=== PATIENT | female | born 1990 | race Caucasian/White ===

== ENCOUNTER → 2017-05-15 | Outpatient (REF) | payer MEDICAID | LOC: M LAB REF 09:26 | PROVIDERS: ATTEND Physician Assistant | DX: N39.0 Urinary tract infection, site not specified (principal) ==

== ENCOUNTER → 2017-05-18 | Outpatient (CLI) | payer MEDICAID ==
[2017-05-18 11:34] LABS: MEAN CORPUSCULAR HEMOGLOBIN 30.9 pg (27.0-33.0); MEAN CORPUSCULAR VOLUME 90.8 fl (80.0-96.0); RED CELL DISTRIBUTION WIDTH 11.7 % (11.5-14.5); WHITE BLOOD COUNT 5.7 K/mm3 (4.0-10.0)
--- NOTE | 2017-05-18 12:11 | ECGEPIP ---
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
[2017-05-18 12:23] LABS: ALBUMIN 3.8 GM/DL (3.2-5.2); ALBUMIN/GLOBULIN RATIO 1.06 (1.00-1.93); ALKALINE PHOSPHATASE 84 U/L (45-117); ALT/SGPT 16 U/L (12-78); ANION GAP 8 MEQ/L (8-16); AST/SGOT 13 U/L (15-37); BILIRUBIN,TOTAL 0.5 MG/DL (0.2-1.0); BLOOD UREA NITROGEN 10 MG/DL (7-18); CALCIUM LEVEL 9.5 MG/DL (8.5-10.1); CARBON DIOXIDE LEVEL 26 MEQ/L (21-32); CHLORIDE LEVEL 107 MEQ/L (98-107); CREATININE FOR GFR 0.71 MG/DL (0.55-1.02); GLOMERULAR FILTRATION RATE > 60.0 (>60); GLUCOSE, FASTING 85 MG/DL (70-105); POTASSIUM SERUM 4.4 MEQ/L (3.5-5.1); SODIUM LEVEL 141 MEQ/L (136-145); TOTAL PROTEIN 7.4 GM/DL (6.4-8.2)
== END ==
LOC: M LAB 11:00
PROVIDERS: ATTEND Family Medicine
DX: Z13.9 Encounter for screening, unspecified (principal); F11.20 Opioid dependence, uncomplicated

== ENCOUNTER 2017-10-19 22:44 | Emergency (ER) | payer MEDICAID ==
[~2017-10-19] VITALS: Ht 165.1 cm; Wt 78.9 kg
[2017-10-19 22:44] VITALS: BP 141/93
[2017-10-19] MEDS ORDERED: SUBO2MIS (23:02)
[2017-10-19] MEDS ORDERED: WELLTAB38 PO (23:02)
[2017-10-19] MEDS ORDERED: [UNRECOGNIZED DRUG - OTHER] (23:03)
[2017-10-20] MEDS ORDERED: CLEO300C2 PO (00:47)
[2017-10-20] MEDS ORDERED: CLINDAMYCIN 150 MG CAP PO ONE (01:00)
[2017-10-20] MEDS ORDERED: IBUPROFEN 800 MG TAB PO ONE (01:00)
--- NOTE | 2017-10-20 01:30 | ED PDOC ---
Post-Departure Follow-Up discussed diagnosis and treatment with patient, pt became verbally abusive swearing stating that the provider did not do his job and she needed and xray, she was asked if she fell and she said "no, it was a needle stick" it was the relayed that a needle probably didn't break the bone and it is most likely cellulitis. the patient was encouraged to return in 2-3 days if the symptoms were not getting better and to return right away if the markedly increase. Pt continued to swear at provider. At this point charge nurse Ann Marie took over the discharge process Adelina Saenz Oct 20, 2017 01:30
[2017-10-20] MEDS ORDERED: IBUPROFEN 600 MG TAB PO ONE (01:45)
== END 2017-10-20 01:48 | disposition home or self-care (01) ==
LOC: EDBD 22:44 → M ED 22:44
DX: L03.113 Cellulitis of right upper limb (principal); F41.9 Anxiety disorder, unspecified; F33.9 Major depressive disorder, recurrent, unspecified; M06.9 Rheumatoid arthritis, unspecified; Z79.891 Long term (current) use of opiate analgesic; Z88.2 Allergy status to sulfonamides; F17.210 Nicotine dependence, cigarettes, uncomplicated

== ENCOUNTER 2018-04-25 13:50 | Emergency (ER) | payer MEDICAID ==
[2018-04-25] MEDS: CLINDAMYCIN 150 MG CAP PO (15:25)
== END 2018-04-25 15:58 | disposition home or self-care (01) ==
LOC: M ED 13:50
DX: H00.015 Hordeolum externum left lower eyelid (principal); F17.200 Nicotine dependence, unspecified, uncomplicated; Z88.2 Allergy status to sulfonamides; Z79.899 Other long term (current) drug therapy
CPT/HCPCS: 99283

== ENCOUNTER 2018-06-23 16:45 | Emergency (ER) | payer MEDICAID, OTHER ==
[2018-06-23] MEDS: [UNRECOGNIZED DRUG - OTHER] IM (18:00)
[2018-06-23] MEDS: metroNIDAZOLE (FLAGYL) 500 MG TAB PO (18:00)
[2018-06-23] MEDS: AZITHROMYCIN 250 MG TAB PO (18:00)
[2018-06-23] MEDS: cefTRIAXone SOD 250 MG VIAL (J0696) IM (18:00)
[2018-06-23] MEDS: EXPOSURE KIT-ADULT 7 DAY SUPPLY PO (18:00)
[2018-06-23] MEDS: ULIPRISTAL ACETATE 30 MG TAB (ELLA) PO (18:15)
[2018-06-23 20:01] LABS: CONTROL LINE INT CTR LINE PRESENT; HIV SCRN NEGATIVE (NEGATIVE); HIV SCRN1 NEGATIVE (NEGATIVE)
[2018-06-23 20:04] LABS: ALBUMIN 4.1 GM/DL (3.2-5.2); ALBUMIN/GLOBULIN RATIO 1.21 (1.00-1.93); ALKALINE PHOSPHATASE 95 U/L (45-117); ALT/SGPT 26 U/L (12-78); ANION GAP 9 MEQ/L (8-16); AST/SGOT 30 U/L (7-37); BILIRUBIN,TOTAL 1.8 MG/DL (0.2-1.0); BLOOD UREA NITROGEN 15 MG/DL (7-18); CALCIUM LEVEL 8.8 MG/DL (8.5-10.1); CARBON DIOXIDE LEVEL 23 MEQ/L (21-32); CHLORIDE LEVEL 108 MEQ/L (98-107); CREATININE FOR GFR 0.65 MG/DL (0.55-1.30); GLOMERULAR FILTRATION RATE > 60.0 (>60); GLUCOSE, FASTING 67 MG/DL (70-100); SODIUM LEVEL 140 MEQ/L (136-145); TOTAL PROTEIN 7.5 GM/DL (6.4-8.2)
[2018-06-23 20:05] LABS: BASO % 0.5 % (0.0-1.0); EOS # 0.2 10^3/uL (0.0-0.50); EOS % 1.9 % (0.0-3.0); HEMATOCRIT 38.8 % (36.0-47.0); HEMOGLOBIN 13.6 g/dl (12.0-15.5); IMMATURE GRANULOCYTE % 0.3 % (0-3.0); LYMPH % 24.9 % (24.0-44.0); MEAN CORPUSCULAR HGB CONC 35.1 g/dl (32.0-36.5); MEAN CORPUSCULAR VOLUME 88.4 fl (80.0-96.0); MONO # 0.9 10^3/uL (0.0-0.8); MONO % 11.4 % (0.0-5.0); NEUTROPHILS # 4.8 10^3/uL (1.8-7.7); PLATELET COUNT, AUTOMATED 187 10^3/uL (150-450); RED BLOOD COUNT 4.39 10^6/uL (4.00-5.40); RED CELL DISTRIBUTION WIDTH 12.2 % (11.5-14.5); WHITE BLOOD COUNT 7.9 10^3/uL (4.0-10.0)
[2018-06-23 20:06] LABS: CONTROL LINE HCG INT CTR LINE PRESENT; HCG, SERUM QUALITATIVE NEGATIVE (NEGATIVE)
[2018-06-25 11:10] LABS: HEPATITIS B SURFACE ANTIBODY NEGATIVE (POSITIVE)
[2018-06-25 11:23] LABS: HEPATITIS B SURFACE ANTIGEN NEGATIVE (NEGATIVE)
[2018-06-25 12:15] LABS: HEPATITIS C VIRUS ABY INDEX 8.5 INDEX (<0.8)
[2018-06-29 00:07] LABS: HCV RNA NAA QUALITATIVE Positive (Negative)
== END 2018-06-23 19:35 | disposition home or self-care (01) ==
LOC: M ED 16:45
DX: T76.21XA Adult sexual abuse, suspected, initial encounter (principal); Z20.5 Contact with and (suspected) exposure to viral hepatitis; Z88.2 Allergy status to sulfonamides
CPT/HCPCS: 90471

== ENCOUNTER 2019-04-18 06:29 | Emergency (ER) | payer MEDICAID, OTHER ==
[~2019-04-18] VITALS: Ht 165.1 cm; Wt 66.8 kg
[~2019-04-18 06:29] MED LIST: CLEO300C2 PO; DIFL150T PO; RALT40TA PO; SUBO2MIS; TRUVTAB PO; WELLTAB38 PO; [UNRECOGNIZED DRUG - OTHER]; suboxone PO
[2019-04-18 06:41] VITALS: BP 117/90
[2019-04-18 07:56] LABS: BASO # 0.1 10^3/uL (0.0-0.2); BASO % 0.6 % (0.0-1.0); EOS # 0.2 10^3/uL (0.0-0.50); EOS % 2.3 % (0.0-3.0); LYMPH # 3.3 10^3/uL (1.5-6.5); LYMPH % 33.2 % (24.0-44.0); MEAN CORPUSCULAR HEMOGLOBIN 31.3 pg (27.0-33.0); MEAN CORPUSCULAR HGB CONC 34.9 g/dl (32.0-36.5); MEAN CORPUSCULAR VOLUME 89.6 fl (80.0-96.0); MONO # 0.9 10^3/uL (0.0-0.8); MONO % 8.9 % (0.0-5.0); NEUTROPHILS # 5.4 10^3/uL (1.8-7.7); NEUTROPHILS % 54.7 % (36.0-66.0); PLATELET COUNT, AUTOMATED 208 10^3/uL (150-450); WHITE BLOOD COUNT 9.9 10^3/uL (4.0-10.0)
[2019-04-18 08:13] LABS: AMPHETAMINES LEVEL URINE POSITIVE (NEGATIVE); BARBITURATES URINE NEGATIVE (NEGATIVE); BENZODIAZEPINES URINE NEGATIVE (NEGATIVE); CANNABINOIDS URINE POSITIVE (NEGATIVE); COCAINE METABOLITE URINE NEGATIVE (NEGATIVE); METHADONE URINE NEGATIVE (NEGATIVE); OPIATES URINE NEGATIVE (NEGATIVE); PHENCYCLIDINE URINE NEGATIVE (NEGATIVE)
--- NOTE | 2019-04-18 08:21 | REP ---
CHEST: Two views. There is no evidence of acute infiltrate. No pleural effusion is seen. The heart is normal in size. The mediastinal silhouette is unremarkable. The visualized osseous structures are intact. IMPRESSION: No acute pulmonary disease. Electronically Signed by Yunior Osei MD 04/22/2019 01:39 P
[2019-04-18 08:31] LABS: BLOOD UREA NITROGEN 14 MG/DL (7-18); CALCIUM LEVEL 9.4 MG/DL (8.5-10.1); CARBON DIOXIDE LEVEL 25 MEQ/L (21-32); CHLORIDE LEVEL 104 MEQ/L (98-107); CPK CREATINE PHOSPHOKINASE 108 U/L (26-192); CREATININE FOR GFR 0.69 MG/DL (0.55-1.30); GLOMERULAR FILTRATION RATE > 60.0 (>60); GLUCOSE, FASTING 91 MG/DL (70-100); MB/CK RELATIVE INDEX 1.39 (< OR =4); POTASSIUM SERUM 3.5 MEQ/L (3.5-5.1); SODIUM LEVEL 137 MEQ/L (136-145); TROPONIN I < 0.02 NG/ML (< 0.10)
--- NOTE | 2019-04-20 07:55 | ECGEPIP ---
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
== END 2019-04-18 09:09 | disposition home or self-care (01) ==
LOC: EDBD 06:29 → M ED 06:29
DX: R07.89 Other chest pain (principal); R00.0 Tachycardia, unspecified; F15.10 Other stimulant abuse, uncomplicated; Z72.0 Tobacco use; Z79.899 Other long term (current) drug therapy; Z88.2 Allergy status to sulfonamides

== ENCOUNTER → 2019-09-19 | Outpatient (REF) | payer OTHER, MEDICAID ==
[2019-09-19 17:10] LABS: APPEARANCE, URINE HAZY (CLEAR); BACTERIA, URINE AUTO NEGATIVE (NEGATIVE); BILIRUBIN, URINE AUTO NEGATIVE (NEGATIVE); BLOOD, URINE BLOOD NEGATIVE (NEGATIVE); COLOR, URINE AMBER (YELLOW); GLUCOSE, URINE (UA) AUTO NEGATIVE (NEGATIVE); KETONE, URINE AUTO TRACE mg/dL (NEGATIVE); LEUKOCYTE ESTERASE, URINE AUTO 2+ (NEGATIVE); MUCUS, URINE SMALL (NEGATIVE); NITRITE, URINE AUTO NEGATIVE (NEGATIVE); PROTEIN, URINE AUTO 1+ mg/dL (NEGATIVE); RBC, URINE AUTO 3 /HPF (0-3); SPECIFIC GRAVITY URINE AUTO 1.021 (1.002-1.035); SQUAMOUS EPITHELIAL CELL UR AU 2 /HPF (0-6); WBC, URINE AUTO 1 /HPF (0-3)
[2019-09-19 20:11] LABS: CHLAMYDIA DNA AMPLIFICATION NEGATIVE (NEGATIVE); GC DNA AMPLIFICATION NEGATIVE (NEGATIVE)
== END ==
LOC: M LAB REF 16:06
PROVIDERS: ATTEND Nurse Practitioner Adult Health
DX: R30.0 Dysuria (principal)

== ENCOUNTER 2020-05-21 17:23 | Emergency (ER) | payer MEDICAID, OTHER ==
[~2020-05-21] VITALS: Ht 165.1 cm; Wt 61.4 kg
[2020-05-21 17:30] VITALS: BP 135/78
[2020-05-21] MEDS ORDERED: NS 1,000 ML IV ONE (17:45)
[2020-05-21] MEDS: COMBIVENT RESPIMAT 100-20MCG INHALER 4GM INH SCH ×2 (17:45→17:52)
== END 2020-05-21 17:56 | disposition left against medical advice (07) ==
LOC: M ED 17:23 → EDBD 17:23 → M ED 17:56
DX: R07.9 Chest pain, unspecified (principal); Z53.21 Procedure and treatment not carried out due to patient leaving prior to being seen by health care provider; F19.10 Other psychoactive substance abuse, uncomplicated; Z72.0 Tobacco use; Z79.899 Other long term (current) drug therapy; Z88.2 Allergy status to sulfonamides

== ENCOUNTER 2020-05-26 01:22 | Emergency (ER) | payer OTHER ==
[~2020-05-26] VITALS: Ht 165.1 cm; Wt 61.4 kg
[2020-05-26] MEDS ORDERED: diphenhydrAMINE 50MG/ML VIAL (J1200) IM ONE (01:30)
[2020-05-26] MEDS ORDERED: LORazepam 2 MG/ML VIAL IM ONE (01:30)
[2020-05-26] MEDS ORDERED: HALOPERIDOL 5MG/ML VIAL (J1630 PER 1) IM ONE (01:30)
[2020-05-26 02:43] LABS: HEMATOCRIT 46.3 % (36.0-47.0); HEMOGLOBIN 16.1 g/dl (12.0-15.5); MEAN CORPUSCULAR HEMOGLOBIN 31.8 pg (27.0-33.0); MEAN CORPUSCULAR VOLUME 91.3 fl (80.0-96.0); PLATELET COUNT, AUTOMATED 247 10^3/uL (150-450); RED BLOOD COUNT 5.07 10^6/uL (4.00-5.40); WHITE BLOOD COUNT 10.1 10^3/uL (4.0-10.0)
[2020-05-26 02:44] LABS: MEAN CORPUSCULAR HGB CONC 34.8 g/dl (32.0-36.5)
[2020-05-26 03:07] LABS: HCG, SERUM QUALITATIVE NEGATIVE (NEGATIVE)
[2020-05-26 03:36] LABS: ACETAMINOPHEN LEVEL < 2.0 UG/ML (10.0-30.0); ALBUMIN 4.5 GM/DL (3.2-5.2); ALT/SGPT 111 U/L (12-78); BILIRUBIN,DIRECT 0.3 MG/DL (0.0-0.2); BILIRUBIN,TOTAL 0.7 MG/DL (0.2-1.0); BLOOD UREA NITROGEN 11 MG/DL (7-18); CALCIUM LEVEL 9.9 MG/DL (8.5-10.1); CARBON DIOXIDE LEVEL 20 MEQ/L (21-32); CHLORIDE LEVEL 106 MEQ/L (98-107); CREATININE FOR GFR 1.29 MG/DL (0.55-1.30); ETHYL ALCOHOL (ETHANOL) < 0.003 % (0.000-0.010); GLOMERULAR FILTRATION RATE 51.7 (>60); GLUCOSE, FASTING 103 MG/DL (70-100); POTASSIUM SERUM 3.8 MEQ/L (3.5-5.1); SODIUM LEVEL 142 MEQ/L (136-145); TOTAL PROTEIN 8.7 GM/DL (6.4-8.2)
[2020-05-26 03:52] LABS: AMPHETAMINES LEVEL URINE POSITIVE (NEGATIVE); BARBITURATES URINE NEGATIVE (NEGATIVE); BENZODIAZEPINES URINE NEGATIVE (NEGATIVE); CANNABINOIDS URINE POSITIVE (NEGATIVE); COCAINE METABOLITE URINE NEGATIVE (NEGATIVE); METHADONE URINE NEGATIVE (NEGATIVE); OPIATES URINE NEGATIVE (NEGATIVE); PHENCYCLIDINE URINE NEGATIVE (NEGATIVE)
[2020-05-26 11:45] VITALS: BP 118/74
== END 2020-05-26 11:48 | disposition home or self-care (01) ==
LOC: M ED 01:22
DX: F19.10 Other psychoactive substance abuse, uncomplicated (principal); Z79.899 Other long term (current) drug therapy; Z88.2 Allergy status to sulfonamides
CPT/HCPCS: 80048; 80076; 80307; 84443; 84703; 85027; 96372; 99285; G0480; J1200; J1630; J2060

== ENCOUNTER 2020-09-05 02:50 | Emergency (ER) | payer OTHER ==
[~2020-09-05] VITALS: Ht 165.1 cm; Wt 75.0 kg
[2020-09-05] MEDS ORDERED: diphenhydrAMINE 50MG/ML VIAL (J1200) IM ONE (03:00)
[2020-09-05] MEDS ORDERED: LORazepam 2 MG/ML VIAL IM ONE (03:00)
[2020-09-05] MEDS ORDERED: HALOPERIDOL 5MG/ML VIAL (J1630 PER 1) IM ONE (03:00)
[2020-09-05 03:37] LABS: HEMATOCRIT 45.5 % (36.0-47.0); HEMOGLOBIN 15.5 g/dl (12.0-15.5); MEAN CORPUSCULAR HEMOGLOBIN 32.9 pg (27.0-33.0); MEAN CORPUSCULAR HGB CONC 34.1 g/dl (32.0-36.5); MEAN CORPUSCULAR VOLUME 96.6 fl (80.0-96.0); PLATELET COUNT, AUTOMATED 178 10^3/uL (150-450); RED BLOOD COUNT 4.71 10^6/uL (4.00-5.40); WHITE BLOOD COUNT 5.9 10^3/uL (4.0-10.0)
[2020-09-05 04:04] LABS: AMPHETAMINES LEVEL URINE NEGATIVE (NEGATIVE); BARBITURATES URINE NEGATIVE (NEGATIVE); BENZODIAZEPINES URINE NEGATIVE (NEGATIVE); CANNABINOIDS URINE NEGATIVE (NEGATIVE); COCAINE METABOLITE URINE NEGATIVE (NEGATIVE); METHADONE URINE NEGATIVE (NEGATIVE); OPIATES URINE NEGATIVE (NEGATIVE); PHENCYCLIDINE URINE NEGATIVE (NEGATIVE)
[2020-09-05 04:07] LABS: ACETAMINOPHEN LEVEL < 2.0 UG/ML (10.0-30.0); ALBUMIN 4.1 GM/DL (3.2-5.2); ALT/SGPT 84 U/L (12-78); BILIRUBIN,DIRECT 0.2 MG/DL (0.0-0.2); BILIRUBIN,TOTAL 0.6 MG/DL (0.2-1.0); BLOOD UREA NITROGEN 8 MG/DL (7-18); CALCIUM LEVEL 8.4 MG/DL (8.5-10.1); CARBON DIOXIDE LEVEL 22 MEQ/L (21-32); CHLORIDE LEVEL 112 MEQ/L (98-107); CREATININE FOR GFR 0.66 MG/DL (0.55-1.30); ETHYL ALCOHOL (ETHANOL) 0.304 % (0.000-0.010); GLOMERULAR FILTRATION RATE > 60.0 (>60); GLUCOSE, FASTING 97 MG/DL (70-100); POTASSIUM SERUM 3.7 MEQ/L (3.5-5.1); SALICYLATE LEVEL 6.7 MG/DL (5.0-30.0); SODIUM LEVEL 143 MEQ/L (136-145); TOTAL PROTEIN 7.8 GM/DL (6.4-8.2)
[2020-09-05 04:18] LABS: HCG, SERUM QUALITATIVE NEGATIVE (NEGATIVE)
[2020-09-05] MEDS ORDERED: LORazepam 2 MG TAB PO PRN (04:30)
[2020-09-05] MEDS ORDERED: THIAMINE 100 MG TAB PO SCH (04:30)
[2020-09-05] MEDS ORDERED: FOLIC ACID 1 MG TAB PO SCH (09:00)
[2020-09-05] MEDS ORDERED: MULTIVITAMINS/MINERALS THERAP 1 TAB PO SCH (09:00)
[2020-09-05 12:07] VITALS: BP 138/92
== END 2020-09-05 12:24 | disposition home or self-care (01) ==
LOC: M ED 02:50
DX: F10.120 Alcohol abuse with intoxication, uncomplicated (principal); F43.0 Acute stress reaction; Z88.2 Allergy status to sulfonamides; F17.218 Nicotine dependence, cigarettes, with other nicotine-induced disorders
CPT/HCPCS: 80048; 80076; 80307; 84443; 84703; 85027; 99285; G0480

== ENCOUNTER 2021-01-02 20:26 | Inpatient (IN) | payer MEDICAID, OTHER ==
[~2021-01-02] VITALS: Ht 165.1 cm; Wt 66.5 kg
[2021-01-02] MEDS ORDERED: diphenhydrAMINE 50MG CAP PO ONE (22:45)
[2021-01-02 22:48] LABS: HCG, SERUM QUALITATIVE NEGATIVE (NEGATIVE)
[2021-01-02 23:00] LABS: ACETAMINOPHEN LEVEL < 2.0 UG/ML (10.0-30.0); ALBUMIN 4.5 GM/DL (3.2-5.2); ALT/SGPT 78 U/L (12-78); BILIRUBIN,DIRECT 0.5 MG/DL (0.0-0.2); BILIRUBIN,TOTAL 1.5 MG/DL (0.2-1.0); BLOOD UREA NITROGEN 4 MG/DL (7-18); CALCIUM LEVEL 9.6 MG/DL (8.5-10.1); CARBON DIOXIDE LEVEL 24 MEQ/L (21-32); CHLORIDE LEVEL 101 MEQ/L (98-107); CREATININE FOR GFR 0.66 MG/DL (0.55-1.30); ETHYL ALCOHOL (ETHANOL) < 0.003 % (0.000-0.010); GLOMERULAR FILTRATION RATE > 60.0 (>60); GLUCOSE, FASTING 84 MG/DL (70-100); POTASSIUM SERUM 3.3 MEQ/L (3.5-5.1); SALICYLATE LEVEL 3.6 MG/DL (5.0-30.0); SODIUM LEVEL 136 MEQ/L (136-145); TOTAL PROTEIN 8.1 GM/DL (6.4-8.2)
[2021-01-02 23:22] LABS: AMPHETAMINES LEVEL URINE POSITIVE (NEGATIVE); BARBITURATES URINE NEGATIVE (NEGATIVE); BENZODIAZEPINES URINE NEGATIVE (NEGATIVE); CANNABINOIDS URINE POSITIVE (NEGATIVE); COCAINE METABOLITE URINE POSITIVE (NEGATIVE); METHADONE URINE NEGATIVE (NEGATIVE); OPIATES URINE NEGATIVE (NEGATIVE); PHENCYCLIDINE URINE NEGATIVE (NEGATIVE)
[2021-01-02 23:36] LABS: HEMATOCRIT 42.9 % (36.0-47.0); HEMOGLOBIN 15.1 g/dl (12.0-15.5); MEAN CORPUSCULAR HEMOGLOBIN 33.1 pg (27.0-33.0); MEAN CORPUSCULAR HGB CONC 35.2 g/dl (32.0-36.5); MEAN CORPUSCULAR VOLUME 94.1 fl (80.0-96.0); PLATELET COUNT, AUTOMATED 172 10^3/uL (150-450); RED BLOOD COUNT 4.56 10^6/uL (4.00-5.40); WHITE BLOOD COUNT 8.1 10^3/uL (4.0-10.0)
[2021-01-02] MEDS ORDERED: HALOPERIDOL 5MG/ML VIAL (J1630 PER 1) IM ONE (23:45)
[2021-01-02] MEDS ORDERED: LORazepam 2 MG/ML VIAL IM ONE (23:45)
[2021-01-02] MEDS ORDERED: POTASSIUM CHLORIDE 10 MEQ SR TABLET PO ONE (23:45)
[2021-01-02] MEDS ORDERED: diphenhydrAMINE 50MG/ML VIAL (J1200) IM ONE (23:45)
--- NOTE | 2021-01-03 22:21 | ECGEPIP ---
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
[2021-01-04] MEDS ORDERED: MOM 30ML SUSPENSION UDC PO PRN (18:30)
[2021-01-04] MEDS ORDERED: MAALOX 30 ML SUSP *UDC PO PRN (18:30)
[2021-01-04] MEDS ORDERED: traZODone 50 MG TAB PO PRN (18:30)
[2021-01-04] MEDS ORDERED: haloperidoL 5 MG TAB PO PRN (18:45)
[2021-01-04] MEDS ORDERED: LORazepam 2 MG TAB PO PRN (18:45)
[2021-01-04] MEDS ORDERED: diphenhydrAMINE 50MG CAP PO PRN (18:45)
[2021-01-04 20:45] VITALS: BP 132/94
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
[2021-01-05 15:00] VITALS: BP 123/78
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
[2021-01-05] MEDS ORDERED: POTASSIUM CHLORIDE 10 MEQ SR TABLET PO ONE (15:30)
[2021-01-05] MEDS: ACETAMINOPHEN TAB 650MG DOSE (2X325MG) PO PRN ×2 (15:41→21:49)
[2021-01-05] MEDS ORDERED: THIAMINE 100 MG TAB PO ONE (16:00)
[2021-01-05 18:56] VITALS: BP 123/78
[2021-01-05 22:12] VITALS: BP 121/85
[2021-01-06 04:30] VITALS: BP 134/67
[2021-01-06] MEDS: ACETAMINOPHEN TAB 650MG DOSE (2X325MG) PO PRN (08:12)
[2021-01-06] MEDS ORDERED: MULTIVITAMINS/MINERALS THERAP 1 TAB PO SCH (09:00)
[2021-01-06] MEDS ORDERED: THIAMINE 100 MG TAB PO SCH (09:00)
[2021-01-06] MEDS ORDERED: FOLIC ACID 1 MG TAB PO SCH (09:00)
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
== END 2021-01-06 10:37 | disposition home or self-care (01) | DRG 754 ==
LOC: M ED 20:26 → M ED INP 01-04 18:24 → M PSY 01-04 21:00
PROVIDERS: ADMIT Psychiatry & Neurology Psychiatry; ATTEND Psychiatry & Neurology Psychiatry
DX: F32.9 Major depressive disorder, single episode, unspecified (principal); F10.139 Alcohol abuse with withdrawal, unspecified; F11.90 Opioid use, unspecified, uncomplicated; F41.9 Anxiety disorder, unspecified; Z88.2 Allergy status to sulfonamides; F17.200 Nicotine dependence, unspecified, uncomplicated; F12.90 Cannabis use, unspecified, uncomplicated; R30.0 Dysuria; R51.9 Headache, unspecified

== ENCOUNTER 2021-02-15 11:06 | Inpatient (IN) | payer MEDICAID, OTHER ==
[2021-02-15] MEDS ORDERED: HALOPERIDOL 5MG/ML VIAL (J1630 PER 1) IM ONE (11:15)
[2021-02-15] MEDS ORDERED: diphenhydrAMINE 50MG/ML VIAL (J1200) IM ONE (11:15)
[2021-02-15] MEDS ORDERED: LORazepam 2 MG/ML VIAL IM ONE (11:15)
[2021-02-15] MEDS ORDERED: LORazepam 2 MG/ML VIAL As Ordered ONE (11:23)
[2021-02-15] MEDS ORDERED: LORazepam 2 MG/ML VIAL IV PRN (11:35)
[2021-02-15 11:52] LABS: HEMATOCRIT 45.2 % (36.0-47.0); HEMOGLOBIN 16.2 g/dl (12.0-15.5); MEAN CORPUSCULAR HEMOGLOBIN 34.1 pg (27.0-33.0); MEAN CORPUSCULAR HGB CONC 35.8 g/dl (32.0-36.5); MEAN CORPUSCULAR VOLUME 95.2 fl (80.0-96.0); PLATELET COUNT, AUTOMATED 236 10^3/uL (150-450); RED BLOOD COUNT 4.75 10^6/uL (4.00-5.40); WHITE BLOOD COUNT 8.1 10^3/uL (4.0-10.0)
[2021-02-15] MEDS ORDERED: NS 1,000 ML IV ONE (11:55)
[2021-02-15 12:17] LABS: HCG, SERUM QUALITATIVE NEGATIVE (NEGATIVE)
[2021-02-15 12:31] LABS: ACETAMINOPHEN LEVEL < 2.0 UG/ML (10.0-30.0); ALBUMIN 4.6 GM/DL (3.2-5.2); ALT/SGPT 77 U/L (12-78); BILIRUBIN,DIRECT 0.4 MG/DL (0.0-0.2); BILIRUBIN,TOTAL 1.2 MG/DL (0.2-1.0); BLOOD UREA NITROGEN 12 MG/DL (7-18); CALCIUM LEVEL 10.3 MG/DL (8.5-10.1); CARBON DIOXIDE LEVEL 23 MEQ/L (21-32); CHLORIDE LEVEL 103 MEQ/L (98-107); CREATININE FOR GFR 0.85 MG/DL (0.55-1.30); ETHYL ALCOHOL (ETHANOL) < 0.003 % (0.000-0.010); GLOMERULAR FILTRATION RATE > 60.0 (>60); GLUCOSE, FASTING 105 MG/DL (70-100); POTASSIUM SERUM 3.7 MEQ/L (3.5-5.1); SALICYLATE LEVEL 5.1 MG/DL (5.0-30.0); SODIUM LEVEL 138 MEQ/L (136-145); TOTAL PROTEIN 8.2 GM/DL (6.4-8.2)
[2021-02-15 12:31] LABS: AMPHETAMINES LEVEL URINE POSITIVE (NEGATIVE); BARBITURATES URINE NEGATIVE (NEGATIVE); BENZODIAZEPINES URINE NEGATIVE (NEGATIVE); CANNABINOIDS URINE POSITIVE (NEGATIVE); COCAINE METABOLITE URINE POSITIVE (NEGATIVE); METHADONE URINE NEGATIVE (NEGATIVE); OPIATES URINE NEGATIVE (NEGATIVE); PHENCYCLIDINE URINE NEGATIVE (NEGATIVE)
[2021-02-16 10:50] LABS: RSV AMPLIFICATION NEGATIVE (NEGATIVE)
[2021-02-16] MEDS ORDERED: traZODone 50 MG TAB PO PRN (11:50)
[2021-02-16] MEDS ORDERED: ACETAMINOPHEN TAB 650MG DOSE (2X325MG) PO PRN (11:50)
[2021-02-16] MEDS ORDERED: MOM 30ML SUSPENSION UDC PO PRN (11:50)
[2021-02-16] MEDS ORDERED: MAALOX 30 ML SUSP *UDC PO PRN (11:50)
[2021-02-16 14:23] VITALS: BP 115/71
[2021-02-16] MEDS ORDERED: LORazepam 2 MG TAB PO PRN (17:55)
[2021-02-16 17:56] VITALS: BP 115/71
[2021-02-16] MEDS: THIAMINE 100 MG TAB PO SCH (18:00)
[2021-02-16 20:59] VITALS: BP 122/73
[2021-02-16] MEDS: NICOTINE 21MG/24HR 1 EA TRANSDERMAL TD SCH ×2 (21:03→21:40)
[2021-02-17 05:45] VITALS: BP 105/73
[2021-02-17 06:00] VITALS: BP 105/73
[2021-02-17] MEDS ORDERED: FOLIC ACID 1 MG TAB PO SCH (09:00)
[2021-02-17] MEDS ORDERED: MULTIVITAMINS/MINERALS THERAP 1 TAB PO SCH (09:00)
[2021-02-17] MEDS: NICOTINE 21MG/24HR 1 EA TRANSDERMAL TD SCH (09:27)
[2021-02-17] MEDS: THIAMINE 100 MG TAB PO SCH ×2 (09:27→21:40)
[2021-02-17] MEDS ORDERED: LORazepam 2 MG TAB PO PRN (15:20)
[2021-02-17] MEDS ORDERED: MAALOX 30 ML SUSP *UDC PO PRN (15:20)
[2021-02-17] MEDS ORDERED: MOM 30ML SUSPENSION UDC PO PRN (15:20)
[2021-02-17] MEDS ORDERED: traZODone 50 MG TAB PO PRN (15:20)
[2021-02-17] MEDS ORDERED: THIAMINE 100 MG TAB PO SCH (16:00)
--- NOTE | 2021-02-17 16:01 | MHHPEPDOC ---
General Date Of Admission: Feb 16, 2021 Legal Status: 9.39 Chief Complaint "I believe I was poisoned". History of Present Illness HISTORY OF THE PRESENT ILLNESS: Patient is a 30 -year-old single, disabled/unemployed, domiciled , female, who was brought to the emergency department on a 941 after making statements that she was being poisoned. Patient states that people in her apartment building are putting things in her drink, states a person named Alice and other people are sneaking into her apartment and trying to poison her. When asked why Alice was not arrested. She states that the police are rude and that they didn't believe her thus, she is admitted to psychiatry. Patient states that she has been calling the police on these people who are trying to poison her. States that today her fingertips in her and that she has a rash. She states that she does not didn't need to be admitted to psychiatry because there isn't anything wrong with her other than Alice trying to poison her. She states that Alice admitted this to the police but brought her in instead. Patient has been to this facility, most recently in December of this year with similar complaints, believing that people are after her and someone putting something in her drink. Per ED report, patient was brought to the emergency department on a 941 after making statements that she was being poisoned and expressing homicidal ideation. Patient states that the police brought her to the ED because she thought she was being poisoned. States that she lives at [address] [place] [address]. in another person that lives there, Alice told her that she was being poisoned by some of the other tenants. Patient then states she believes that she is being poisoned, because it has happened 4-5 other times before. She denies suicidality, denies any history of past suicide attempts or self-harm. Also denies homicidal ideation and states that she'll only need homicidal statements to police because "I was out of it". She denies both auditory and visual hallucinations. She does not appear to be internally preoccupied. She complains of depressed mood, anxiety, poor concentration, decreased energy, poor appetite. She reports a history of bipolar disorder and PTSD with 2 admissions to [facility] inpatient psychiatry. She cannot remember when the admissions were she does not currently have outpatient treatment. She reports daily alcohol use and uses drugs "a couple times a week. Patient's drug screen was positive for cannabis, cocaine and amphetamines. Psychiatric Review of Systems Depression (2 or more weeks): denies Koki (4 or more days of): denies Psychosis: delusions, paranoia PTSD: history of trauma, nightmares and flashbacks, intrusive memories, avoidance of triggers Anxiety: gen/non-specific anxiety, situational anxiety, stressor related anxiety Anxiety/ 6 months or more of: restlessness, keyed up, easily fatigued, difficulty concentrating Past Psychiatric History Previous Psychiatric Diagnosis: Unspecified psychotic disorder, alcohol use d isorder. Methamphetamine use disorder, unspecified anxiety disorder, PTSD, not formally diagnosed. Previous Psychiatric Admissions:. This is patient's third hospitalization , possibly Suicide Attempts: no past gestures or attempts. Psychiatric Follow-up: None currently. Psychiatric medications:. No medications. Rehabilitation treatment: [facility], [facility], detox in [place]. Rehab in [place] for alcohol and cannabis Past Medical History Medical Problems Reports that she needs wisdom tooth extraction Rheumatoid arthritis History of lower back pain History of cough and trouble swallowing Head Injury: Yes ( concussion when she was 15 years old) Seizures: No Hospitalizations: Yes (LEEP procedure and hernia repair when she was a baby) Surgeries: Yes Family Medical/Psychiatric HX Medical Problems Father ()hypertension Paternal grandfather, CVA, cardiac paternal side of the family. She reports lymphoma bone cancer, cervical cancer Paternal side of the family. Aunts - Throat cancer, uncle - lung cancer Psychiatric Disorders: Yes (. Mother was hospitalized in [place]) Addiction: Yes (addiction on both sides of the family) Suicide Attemps/Completions: No Addiction History nicotine (2 packs per day), alcohol (every day if he can get it, 24 ounce or at least a 6 pack), other (. Cannabis, reports history of methamphetamine use, amphetamine, history of opiate abuse and was on Suboxone) Social History Childhood: Patient was born in [place], has 3 brothers and she is the second child. She dropped out of school in the eighth grade. Reports her childhood was chaotic. Stated there was a lot of anger. She did well in school until she was about 11. She has rheumatoid arthritis. The medications made her bloated. She arciniega d weight gain and she was bullied because of it. Abuse/Trauma: Yes. Current Living Situation:, Lives alone, has a room, shares a bathroom, lives at [address] [place] [address]. Education:, Went to the eighth grade. Did not pass. Employment:, Not employed at this time has not worked in 7 years. 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 Social Support: Reports that her grandmother's is her supports, but she has no phone or transportation to see her. Her grandmother lives in [place]. Legal: No current legal issues. Has had charges in the past for assault, has been in [facility] for that as well as she was in [facility] for drug charges. Reports that she has not been in parole since 2018 Marital:. Goal not , 1 child. Child is 11 years old. Stressors: Not being able to see her daughter, doesn't like where she lives Mental Status Examination General Appearance: disheveled, ds/not appear stated age (. She looks older), hospital scubs/clothing Build: thin Demeanor: average Eye Contact: average Activity: average Behavior: cooperative Speech: reg/rate,rhythm,volume Mood: anxious Affect: anxious Thought Process: logical/linear Thought Content (Delusions): paranoia, delusions Thought Content (Other): appears paranoid Thought Content (Aggressive): none reported Perception (Hallucinations): none reported Perception (Other): none reported Cognition (Impairment of): none reported Cognition(Intelligence Est.): average Oriented: Awake, Alert, Oriented times three Insight: fair Judgment: Fair Psychosis: Other (believes that people in her apartment building are poisoning her) Diagnoses Unspecified schizophrenia and other psychotic disorders Alcohol use disorder Methamphetamine use disorder Rule out methamphetamine induced psychotic disorder Cannabis use disorder Nicotine use disorder Unspecified anxiety disorder Reports PTSD not formally diagnosed A-FIB/CHADSVASC A-FIB History Current/History of A-Fib/PAF?: No Current PO Anticoag Therapy: No Assessment Patient is a 30-year-old single, disabled/unemployed, domiciled female who was brought to the emergency department on a 941 after she had called the police reporting that someone was poisoning her drink. Patient has been to this facility for similar complaints. Patient admits to cannabis, alcohol, cannabis use. He denies any use of methamphetamines, but has a history of it. She reports feeling very hot, very thirsty having a burning feeling in her fingers and toes. These complaints are very similar to her last hospitalization in December 2019. She will be started on antipsychotic medications to reduce her paranoia and delusions at the time of the interview. She has minimal psychotic symptoms in while she is still delusional. Her delusions are mild. She denies depression, anxiety, suicidal or homicidal ideation, planning or intent to be observed overnight and will determine her needs for future follow-up. We will discharge when appropriate and when she has a safe discharge. Will reinforce continued substance use treatment Initial Treatment Plan 1. Patient was admitted on a [9.39] status. 2. Complete history was obtained. 3. With patients permission, family will be contacted and database will be expanded. 4. Patients medication regimen will be reviewed and changed accordingly. 5. Patient will be provided with protected environment. 6. Patient will be treated with individual, group, and milieu therapies. 7. Patient will receive supportive psych-education. 8. Discharge planning will commence immediately. 9. Outpatient follow-up treatment will be strongly recommended. 10. The initial treatment plan will focus initially on: * altered thoughts. * substance use. ESTIMATED LENGTH OF STAY: 1-3 DAYS. TIME SPENT COUNSELING AND COORDINATING INITIAL CARE: 60 minutes. Tobacco Cessation Screen Tobacco Cessation Tx Ordered?: Yes Pt Refused Vital Signs Vital Signs Date Time Temp Pulse Resp B/P (MAP) Pulse Ox O2 Delivery O2 Flow Rate FiO2 02/17/21 06:00 97.0 89 14 105/73 (84) 99 02/15/21 23:30 Room Air Medications No Active Prescriptions or Reported Meds Allergies Coded Allergies: Sulfa (Sulfonamide Antibiotics) (Verified Allergy, Mild, RASH, 09/05/20) JENNIFER MANLEY MOLD COOLER Feb 17, 2021 15:32
[2021-02-17] MEDS ORDERED: OLANZapine ORAL DISINTEGRATING TAB 5MG PO PRN (16:10)
[2021-02-17 17:00] VITALS: BP 113/71
[2021-02-17 18:09] VITALS: BP 113/71
[2021-02-17] MEDS ORDERED: OLANZapine 10 MG TAB PO SCH (21:00)
--- NOTE | 2021-02-17 22:57 | HPEPDOC ---
[facility] Medical History & Physical Date of Admission Feb 16, 2021 Date of Service: Feb 17, 2021 History and Physical CHIEF COMPLAINT: Paranoid and Homicidal ideation HISTORY OF PRESENT ILLNESS: Mrs. Duval is a 30 year old female who is in the inpatient mental health unit with homicidal ideation and paranoid. I saw patient later in the afternoon. She is concerned that her neighbor has been poisoning her food, drink, and clothes. She would have itches rashes after a powder like substance touch her. These rashes has since resolved. Since she is worried that her neighbor has been trying to poison her with this powder, she didn't eat or drink anything on the day of admission. Otherwise, when discussing about symptoms, she could not give me a discrete answer. She could not say when symptoms started, but relates symptoms to the white powder. Now that she has been away from this white powder, her abdominal pain, dyspnea, sore throat, and numbness in hands and feet have improved. She does report intermittent chest pain that lasts for a few seconds. She could not describe the quality of the chest pain. It can happen at any time. Otherwise, she does drink alcohol, last alcoholic drink was 2 day prior. She does use recreational drugs, last used before admission. She uses Meth, Randi, and Marijuana. PAST MEDICAL HISTORY: 1. Polysubstance abuse 2. Tobacco use 3. Bipolar disorder 4. Manic depressive disorder 5. Anxiety 6. Juvenile arthritis PAST SURGICAL HISTORY: None SOCIAL HISTORY: Tobacco use: Current smoker ETOH: Drinks 6 beers nightly Illicit drug use: Uses marijuana, Meth, and Randi FAMILY HISTORY: Father: History of DM and HTN Mother: History of unknown mental health issues ALLERGIES: Please see below. REVIEW OF SYSTEMS: CONSTITUTIONAL: Denies any fever or chills. ENT: Reports sore throat that is improving RESPIRATORY: Reports dyspnea and cough which have improved CARDIOVASCULAR: Reports intermittent chest pain that lasts a few seconds. GASTROINTESTINAL: Reports bilateral, sharp abdominal pain that started 1 week ago, but improved GENITOURINARY: Denies dysuria. CUTANEOUS: Denies rashes. MUSCULOSKELETAL: Denies muscle weakness. NEUROLOGICAL: Reports numbness in fingers and toes which have improved PSYCHOLOGICAL: Reports anxiety HOME MEDICATIONS: Please see below. PHYSICAL EXAMINATION: VITAL SIGNS: Temperature 97, pulse 104, respiratory rate 14, blood pressure 113/71, pulse oximetry 99% on room air. GENERAL: Comfortable, in no apparent distress. HEENT: Head normocephalic/atraumatic, EOMI, sclera clear. NECK: Supple, no JVD. RESPIRATORY: Lungs clear to auscultation bilaterally, no rales, wheeze or rhonchi. CARDIOVASCULAR: Regular rate and rhythm. ABDOMEN: Soft, nontender. Normal bowel sounds. MUSCLE SKELETAL: Muscle strength 5/5 in all extremities. NEUROLOGICAL: CN 312 grossly intact, no focal deficits noted. PSYCHOLOGICAL: Anxious LABORATORY DATA: See below. ASSESSMENT and Plan 1. Unspecified schizophrenia and other psychotic disorders -Being managed in the inpatient mental health unit 2. Chest pain -Atypical in nature -Patient is young, unlikely to have CAD, but does have history of cocaine use -Patient may benefit from seeing cardiology outpatient -Will order troponin and EKG as part of screening 3. Multiple non-specific complaints -May be related to psychosis and paranoia that someone is poisoning her -Symptoms improved now that she has avoided the powder which has been poisoning her -Labwork appears benign -Will repeat labs since drawing troponin -Patient should follow up with PCP for monitoring of these multiple non-specific complaints Vital Signs Vital Signs Date Time Temp Pulse Resp B/P (MAP) Pulse Ox O2 Delivery O2 Flow Rate FiO2 02/17/21 18:09 97.4 104 18 113/71 (85) 100 Room Air Home Medications No Active Prescriptions or Reported Meds Allergies Coded Allergies: Sulfa (Sulfonamide Antibiotics) (Verified Allergy, Mild, RASH, 09/05/20) A-FIB/CHADSVASC A-FIB History Current/History of A-Fib/PAF?: No JOSÉ LUIS CHÁVEZ DO Feb 17, 2021 22:57
[2021-02-18 06:35] VITALS: BP 123/68
[2021-02-18] MEDS ORDERED: BENZ0.5T23 PO (07:26)
[2021-02-18] MEDS ORDERED: OLAN10TA2 PO (07:26)
[2021-02-18] MEDS ORDERED: HYDR-3363 PO (07:26)
--- NOTE | 2021-02-18 07:42 | MHDSPDOC ---
[facility] Discharge Summary Discharge Summary DATE OF ADMISSION: Feb 16, 2021 at 11:47 DATE OF DISCHARGE: February 18, 2021 at 0734 DISCHARGE DIAGNOSES: Unspecified schizophrenia and other psychotic disorders Alcohol use disorder Methamphetamine use disorder Rule out methamphetamine induced psychotic disorder Cannabis use disorder Nicotine use disorder Unspecified anxiety disorder Reports PTSD not formally diagnosed REASON FOR ADMISSION: Patient is a 30 -year-old single, disabled/unemployed, domiciled , female, who was brought to the emergency department on a 941 after making statements that she was being poisoned. She was delusional and paranoid. Patient states that people in her apartment building are putting things in her drink, states a person named Alice and other people are sneaking into her apartment and trying to poison her. When asked why Alice was not arrested. She states that the police are rude and that they didn't believe her thus, she is admitted to psychiatry. Patient states that she has been calling the police on these people who are trying to poison her. States that today her fingertips in her and that she has a rash. She states that she does not didn't need to be admitted to psychiatry because there isn't anything wrong with her other than Alice trying to poison her. She states that Alice admitted this to the police but brought her in instead. Patient has been to this facility, most recently in December of this year with similar complaints, believing that people are after her and someone putting something in her drink. Per ED report, patient was brought to the emergency department on a 941 after making statements that she was being poisoned and expressing homicidal ideation. Patient states that the police brought her to the ED because she thought she was being poisoned. States that she lives at [address] [place] [address] in another person that lives there, Alice told her that she was being poisoned by some of the other tenants. Patient then states she believes that she is being poisoned, because it has happened 4-5 other times before. She denies suicidality, denies any history of past suicide attempts or self-harm. Also denies homicidal ideation and states that she'll only need homicidal statements to police because "I was out of it". She denies both auditory and visual hallucinations. She does not appear to be internally preoccupied. She complains of depressed mood, anxiety, poor concentration, decreased energy, poor appetite. She reports a history of bipolar disorder and PTSD with 2 admissions to [facility] inpatient psychiatry. She cannot remember when the admissions were she does not currently have outpatient treatment. She reports daily alcohol use and uses drugs "a couple times a week. Patient's drug screen was positive for cannabis, cocaine and amphetamines. CONSULTANTS INVOLVED: See Medical H + P by Hospitalist TREATMENT AND PROGRESS ON THE UNIT: Patient was admitted to the [facility] on a 9.39 legal status he was afforded the following treatment modalities: 1) Individual Therapy 2) Group Therapy 3) Medication Management 4) Milieu Therapy 5) Safe Environment HOSPITAL COURSE: Patient was admitted to [facility] on a 9.39 legal status. She was started on Olanzapine 10 mg HS for her paranoid, bizarre and delusional thinking. In yesterdays interview which was my initial evaluation with the patient, she had requested to be discharged. She continued to have paranoia about people putting food in her drink but this was minimal. Attempted to speak to patient about her substance use but she denies use. She had a positive drug screen. Patient was admitted in December 2019 and had virtually similar complaints. She was observed to be delusional and paranoia and believing that people were poisoning her then. Patient has a long history of substance abuse treatment in multiple facilities. She was not agreeable to this as a treatment plan and wanted to return home. she reports that today that she has no abnormal psychiatric symptoms. At this time as she no longer is exhibiting paranoid thinking or believing that people are poisoning her she can be discharged to home. She denies any mood/depressive symptoms on initial evaluation. DISCHARGE ASSESSMENT: In today's interview, patient is alert and oriented, pts dress is appropriate. Hygiene and grooming is Fair. Denies depression and anxiety. Denies suicidal and homicidal ideation, planning or intent. Denies and is not observed with josé miguel, psychotic symptoms of delusions, bizarre thinking, obsessions, paranoia, ruminations illogical thoughts, flight of ideas or does only have fair insight and judgement. Patient has normal mentation, declines further hospitalization on a voluntary status and meets criteria for discharge today. Patient encouraged to return to hospital if his symptoms worsen or change and encouraged to call unit if he/she/they needs to speak to provider for questions regarding medications or care. MENTAL STATUS EXAMINATION ON DISCHARGE: Patient is a 30 -year-old single, disabled/unemployed, domiciled , female, who was brought to the emergency department on a 941 after making statements that she was being poisoned. She was delusional and paranoid. Wilfredo selena's drug screen was positive for cannabis, cocaine and amphetamines. Speech: Is conversant, normal rate, tone and volume, minimal responses but patient is at baseline Language skills are intact Thought processes including: linear and goal oriented Thought content: denies depression and anxiety. Denies suicidal/homicidal ideation, planning or intent. Abstract reasoning, and computation: fair Description of associations: denies, none observed Description of abnormal or psychotic thoughts: denies, none observed. Judgment: fair Insight: fair Orientation: alert and oriented to person, place, time and situation Recent and remote memory: fair Attention span and concentration: fair Language: expansive Fund of knowledge: average Mood: Euthymic Mood Affect: flat MEDICATIONS ON DISCHARGE: See Medication Reconciliation PLAN/FOLLOWUP ARRANGEMENTS: [facility] The amount of time spent in the coordination of care for this patient was approximately 24 minutes. ETOH/Disorder Med Rx ETOH/DRUG DISORDER RX: Offrd @ d/c & pt refused Vital Signs/I&Os Vital Signs Date Time Temp Pulse Resp B/P (MAP) Pulse Ox O2 Delivery O2 Flow Rate FiO2 02/18/21 06:35 98.3 93 16 123/68 (86) 100 Room Air Medications Scheduled Olanzapine (Olanzapine) 10 Mg Tablet, 10 MG PO QHS for Antipsychotic, #7 Scheduled PRN Benztropine Mesylate (Benztropine Mesylate) 0.5 Mg Tablet, 0.5 MG PO BID PRN for EPS, #14 Hydroxyzine HCl (Hydroxyzine HCl) 25 Mg Tablet, 25 MG PO BID PRN for ANXIETY, #14 Allergies Coded Allergies: Sulfa (Sulfonamide Antibiotics) (Verified Allergy, Mild, RASH, 09/05/20) JENNIFER MANLEY NP Feb 18, 2021 07:42
[2021-02-18] MEDS: THIAMINE 100 MG TAB PO SCH (09:00)
[2021-02-18] MEDS ORDERED: NICOTINE 21MG/24HR 1 EA TRANSDERMAL TD SCH (09:00)
[2021-02-18] MEDS ORDERED: MULTIVITAMINS/MINERALS THERAP 1 TAB PO SCH (09:00)
[2021-02-18] MEDS ORDERED: FOLIC ACID 1 MG TAB PO SCH (09:00)
== END 2021-02-18 13:00 | disposition home or self-care (01) | DRG 750 ==
LOC: CANPREER → M ED 11:06 → EDBD 11:06 → EDUNIT# 11:06 → UNDOADMIN 02-16 11:47 → EDBD 02-16 11:47 → M ED INP 02-16 11:47 → M PSY 02-16 11:47 → M ED 02-16 14:09 → M ED INP 02-16 14:12 → M PSY 02-16 14:12
PROVIDERS: ADMIT Psychiatry & Neurology Psychiatry; ATTEND Psychiatry & Neurology Psychiatry
DX: F20.9 Schizophrenia, unspecified (principal); R45.850 Homicidal ideations; F10.10 Alcohol abuse, uncomplicated; F12.90 Cannabis use, unspecified, uncomplicated; F17.200 Nicotine dependence, unspecified, uncomplicated; F41.9 Anxiety disorder, unspecified; F11.90 Opioid use, unspecified, uncomplicated; Z88.2 Allergy status to sulfonamides

== ENCOUNTER → 2021-07-02 | Outpatient (REF) | payer MEDICAID ==
[~2021-07-02] MED LIST changes: +BENZ0.5T23 PO; +EMTR1TAB16 PO; +HYDR-3363 PO; +OLAN1TAB20 PO; -TRUVTAB PO
[2021-07-02 17:28] LABS: APPEARANCE, URINE CLEAR (CLEAR); BACTERIA, URINE AUTO NEGATIVE (NEGATIVE); BILIRUBIN, URINE AUTO NEGATIVE (NEGATIVE); BLOOD, URINE BLOOD NEGATIVE (NEGATIVE); COLOR, URINE YELLOW (YELLOW); GLUCOSE, URINE (UA) AUTO NEGATIVE (NEGATIVE); KETONE, URINE AUTO NEGATIVE (NEGATIVE); LEUKOCYTE ESTERASE, URINE AUTO TRACE (NEGATIVE); NITRITE, URINE AUTO NEGATIVE (NEGATIVE); PROTEIN, URINE AUTO NEGATIVE (NEGATIVE); RBC, URINE AUTO 0 /HPF (0-3); SPECIFIC GRAVITY URINE AUTO 1.005 (1.002-1.035); SQUAMOUS EPITHELIAL CELL UR AU 0 /HPF (0-6); UROBILINOGEN, URINE AUTO 0.2 mg/dL (0.0-2.0); WBC, URINE AUTO 1 /HPF (0-3)
== END ==
LOC: M LAB REF 17:05
PROVIDERS: ATTEND Physician Assistant
DX: N39.0 Urinary tract infection, site not specified (principal)

== ENCOUNTER 2021-07-30 23:45 | Emergency (ER) | payer MEDICAID, OTHER ==
[2021-07-31 00:12] VITALS: BP 129/91
== END 2021-07-31 00:36 | disposition home or self-care (01) ==
LOC: M ED 23:45
DX: F43.0 Acute stress reaction (principal); F19.10 Other psychoactive substance abuse, uncomplicated; F17.200 Nicotine dependence, unspecified, uncomplicated; Z79.899 Other long term (current) drug therapy; Z88.2 Allergy status to sulfonamides

== ENCOUNTER 2021-09-24 00:53 | Inpatient (IN) | payer MEDICAID, OTHER ==
[~2021-09-24] VITALS: Ht 167.6 cm; Wt 66.9 kg
[2021-09-24] MEDS ORDERED: LORazepam 1 MG TAB PO STA (02:33)
[2021-09-24 03:08] LABS: AMPHETAMINES LEVEL URINE POSITIVE (NEGATIVE); BARBITURATES URINE NEGATIVE (NEGATIVE); BENZODIAZEPINES URINE NEGATIVE (NEGATIVE); CANNABINOIDS URINE POSITIVE (NEGATIVE); COCAINE METABOLITE URINE NEGATIVE (NEGATIVE); METHADONE URINE NEGATIVE (NEGATIVE); OPIATES URINE NEGATIVE (NEGATIVE); PHENCYCLIDINE URINE NEGATIVE (NEGATIVE)
[2021-09-24 05:47] LABS: HEMOGLOBIN 14.2 g/dl (12.0-15.5); MEAN CORPUSCULAR HEMOGLOBIN 31.6 pg (27.0-33.0); MEAN CORPUSCULAR HGB CONC 35.5 g/dl (32.0-36.5); MEAN CORPUSCULAR VOLUME 88.9 fl (80.0-96.0); PLATELET COUNT, AUTOMATED 247 10^3/uL (150-450)
[2021-09-24 06:33] LABS: ACETAMINOPHEN LEVEL < 2.0 UG/ML (10.0-30.0); ALBUMIN 3.9 GM/DL (3.2-5.2); ALT/SGPT 72 U/L (12-78); BILIRUBIN,DIRECT 0.4 MG/DL (0.0-0.2); BILIRUBIN,TOTAL 1.2 MG/DL (0.2-1.0); BLOOD UREA NITROGEN 15 MG/DL (7-18); CALCIUM LEVEL 9.4 MG/DL (8.5-10.1); CARBON DIOXIDE LEVEL 23 MEQ/L (21-32); CHLORIDE LEVEL 103 MEQ/L (98-107); CREATININE FOR GFR 0.61 MG/DL (0.55-1.30); ETHYL ALCOHOL (ETHANOL) < 0.003 % (0.000-0.010); GLOMERULAR FILTRATION RATE > 60.0 (>60); GLUCOSE, FASTING 80 MG/DL (70-100); POTASSIUM SERUM 3.8 MEQ/L (3.5-5.1); SALICYLATE LEVEL 3.8 MG/DL (5.0-30.0); SODIUM LEVEL 135 MEQ/L (136-145)
[2021-09-24 08:10] LABS: RSV AMPLIFICATION NEGATIVE (NEGATIVE)
[2021-09-24] MEDS ORDERED: MED REC COMMENT (08:33)
[2021-09-24] MEDS ORDERED: HOME MED LIST COMPLETE! XX SCH (08:35)
[2021-09-24] MEDS ORDERED: ACETAMINOPHEN TAB 650MG DOSE (2X325MG) PO PRN (08:40)
[2021-09-24] MEDS ORDERED: MAALOX 30 ML SUSP *UDC PO PRN (08:40)
[2021-09-24] MEDS ORDERED: MOM 30ML SUSPENSION UDC PO PRN (08:40)
[2021-09-24] MEDS ORDERED: OLANZapine ORAL DISINTEGRATING TAB 5MG PO PRN (08:40)
[2021-09-24] MEDS ORDERED: hydrOXYzine 50 MG TAB PO PRN (17:45)
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
[2021-09-24 18:37] VITALS: BP 98/54
[2021-09-24] MEDS: cloNIDine 0.1MG TABLET PO SCH (21:51)
[2021-09-24] MEDS: OLANZapine 10 MG TAB PO SCH (21:51)
[2021-09-24] MEDS: traZODone 50 MG TAB PO PRN (21:52)
[2021-09-25 06:15] VITALS: BP 120/63
[2021-09-25] MEDS: cloNIDine 0.1MG TABLET PO SCH ×2 (09:00→22:11)
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
[2021-09-25] MEDS: THIAMINE 100 MG TAB PO SCH (14:59)
[2021-09-25] MEDS: FOLIC ACID 1 MG TAB PO SCH (14:59)
[2021-09-25] MEDS: MULTIVITAMINS/MINERALS THERAP 1 TAB PO SCH (14:59)
[2021-09-25 16:43] VITALS: BP 97/63
[2021-09-25] MEDS: traZODone 50 MG TAB PO PRN (22:10)
[2021-09-25] MEDS: OLANZapine 10 MG TAB PO SCH (22:11)
[2021-09-26 06:40] VITALS: BP 103/50
[2021-09-26] MEDS: cloNIDine 0.1MG TABLET PO SCH ×2 (09:00→21:00)
[2021-09-26] MEDS: THIAMINE 100 MG TAB PO SCH (09:39)
[2021-09-26] MEDS: FOLIC ACID 1 MG TAB PO SCH (09:39)
[2021-09-26] MEDS: MULTIVITAMINS/MINERALS THERAP 1 TAB PO SCH (09:39)
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
[2021-09-26 16:41] VITALS: BP 109/54
[2021-09-26 21:00] VITALS: BP 99/64
[2021-09-26] MEDS: OLANZapine 10 MG TAB PO SCH (22:06)
[2021-09-27 06:24] VITALS: BP 111/62
[2021-09-27] MEDS: cloNIDine 0.1MG TABLET PO SCH (09:00)
[2021-09-27] MEDS: MULTIVITAMINS/MINERALS THERAP 1 TAB PO SCH (09:50)
[2021-09-27] MEDS: FOLIC ACID 1 MG TAB PO SCH (09:50)
[2021-09-27] MEDS: THIAMINE 100 MG TAB PO SCH (09:50)
[2021-09-27] MEDS ORDERED: FOLI1TAB11 PO (12:29)
[2021-09-27] MEDS ORDERED: THIA100TA PO (12:29)
[2021-09-27] MEDS ORDERED: VITMTA PO (12:29)
[2021-09-27] MEDS ORDERED: OLAN1TAB20 PO (12:29)
--- NOTE | 2021-09-27 16:02 | MHDSPDOC ---
[facility] Discharge Summary Discharge Summary DATE OF ADMISSION: Sep 24, 2021 at 08:39 DATE OF DISCHARGE: September 27, 2021 at 1339 DISCHARGE DIAGNOSES: Unspecified psychotic disorder Rule out methamphetamine induced psychotic disorder Alcohol use disorder Methamphetamine use disorder Cannabis use disorder Nicotine use disorder REASON FOR ADMISSION: Patient is a 30 -year-old single , disabled/unemployed, domiciled , female, who was brought to the emergency department on 941 after she called the police stating that she was burning alive. On interview p atient states, "I had shit thrown at me. I think it was lithium it was oily and it dried fast it was, like radiation. They would not let me wash it off and it was torture" patient was unable to provide any more information she was exhibiting mild flight of ideas, had poor concentration, and loose associations. Patient has presented to this hospital with similar presentation. Her last hospitalization was February 2021 and December 2020. 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 Patient was unable to answer most questions as she fell asleep throughout the interview VITAL SIGNS: See below. CONSULTANTS INVOLVED: See Medical H + P by Hospitalist TREATMENT AND PROGRESS ON THE UNIT: Patient was admitted to the [facility] on a 9.39 legal status was afforded the following treatment modalities: 1) Individual Therapy 2) Group Therapy 3) Medication Management 4) Milieu Therapy 5) Safe Environment HOSPITAL COURSE: Patient was admitted to [facility] on a 9.39 legal status. She was admitted for flight of ideas and psychotic statements. Likely is secondary to substance use, however at this point in time able to given lack of interaction during initial interview. Patient was started on Olanzapine for psychosis and pt found medications beneficial and tolerated them well. Mood, anxiety, and intrusive thoughts improved with treatment. Patient was mostly Pts symptoms improved moderately with treatment. She remained isolative to her room, sleeping most of her admission. Today she continued to report pain in her arciniega nds, stating that she had chemicals or radiation thrown at her. There is no injury on her hand, it is not red, swollen or weepy. No open areas of her hand. She made some delusional statements that were benign in nature. She was alert and oriented today, no psychotic symptoms and she is requesting to be discharged today, stating "I hope I can still go back to the [facility], all my stuff is there." Today pt. denied depression, anxiety, insomnia, SI/HI, hallucinations, delusions and josé miguel. Pt was discharged home with follow-up [facility]. Pt felt safe for discharge. She has been compliant medications administ ered and is requesting to be discharged today. She appears to perseverate about chemicals and radiation but she is alert and orients, denying any thoughts of self-harm to herself and others. DISCHARGE ASSESSMENT: In today's interview, patient is alert and oriented, pt.s dress is appropriate. Hygiene and grooming is fair. Denies depression and anxiety. Denies suicidal and homicidal ideation, planning or intent. Denies and is not observed with josé miguel, psychotic symptoms of delusions, bizarre thinking, obsessions, paranoia, ruminations illogical thoughts, flight of ideas or having poor insight and judgement. Patient has minimal responses to provider, but this is patient's baseline. Reinforced with patient need to abstain from alcohol and drugs. At discharge patient has normal mentation, declines further hospitalization on a voluntary s tatus and meets criteria for discharge today. Discussed indications of medications, potential benefits and risks, alternatives (including no treatment) and questions were encouraged and answered. Patient encouraged to return to hospital if symptoms worsen or change and encouraged to call unit if he/she/they needs to speak to provider for questions regarding medications or care. MENTAL STATUS EXAMINATION ON DISCHARGE: Patient is a 30 year old Single, Unemployed, Female who was admitted for flight of ideas and psychotic statements. Likely is secondary to substance use, however at this point in time able to given lack of interaction during interview. Speech: Is fluid, conversant, normal rate, tone and volume Language skills are intact Thought processes including: linear and goal oriented Thought content: denies depression and anxiety. Denies suicidal/homicidal ideation, planning or intent. Abstract reasoning, and computation: fair Description of associations: denies, none observed Description of abnormal or psychotic thoughts: denies, none observed. Judgment: fair Insight: fair Orientation: alert and oriented to person, place, time and situation Recent and remote memory: intact Attention span and concentration: good Language: expansive Fund of knowledge: average Mood: Euthymic Mood Affect: reactive Suicide Risk Assessment: 1) Does the patient wish to be ? No 2) Since your admission, have you had any actual thought of killing yourself? No 3) Since your admission, have you been thinking about how you might do this? No 4) Since your admission, have you had these thoughts and had some intention of acting on them? No 5) Since your admission, have you started to work out or worked out the details of how to kill yourself? No 5A) Do you intent to carry out this plan? No and NA 6) Have you ever done anything, started anything, or prepared to do anything with any intent to ? No 6A) How long since your admission did you do any of these? NA MEDICATIONS ON DISCHARGE: See Medication Reconciliation PLAN/FOLLOWUP ARRANGEMENTS: Mental Health Appt 1 * Mental Health [facility] * Additional information [facility] September 30 @ 9AM. The amount of time spent in the coordination of care for this patient was approximately 25 minutes. ETOH/Disorder Med Rx ETOH/DRUG DISORDER RX: Offrd @ d/c & pt refused Vital Signs/I&Os Vital Signs Date Time Temp Pulse Resp B/P (MAP) Pulse Ox O2 Delivery O2 Flow Rate FiO2 09/27/21 06:24 97.9 80 18 111/62 (78) 98 Room Air Medications Scheduled Folic Acid (Folic Acid) 1 Mg Tablet, 1 MG PO DAILY for Vitamin Replacement, #7 Multivitamins (Thera M Plus Tablet) 1 Each Tablet, 1 TAB PO DAILY for Vitamin Replacement, #7 Olanzapine (Olanzapine) 10 Mg Tablet, 10 MG PO QHS for Psychosis, #7 Thiamine Hcl (Vitamin B-1) 100 Mg Tablet, 100 MG PO DAILY for Vitamin Replacement, #7 Allergies Coded Allergies: Sulfa (Sulfonamide Antibiotics) (Verified Allergy, Mild, RASH, 09/05/20) JENNIFER MANLEY [employer] Sep 27, 2021 13:41
== END 2021-09-27 18:17 | disposition home or self-care (01) | DRG 775 ==
LOC: M ED 00:53 → M ED INP 08:39 → M PSY 09:16
PROVIDERS: ADMIT Student in an Organized Health Care Education/Training Program; ATTEND Psychiatry & Neurology Psychiatry
DX: F15.159 Other stimulant abuse with stimulant-induced psychotic disorder, unspecified (principal); F10.10 Alcohol abuse, uncomplicated; F12.10 Cannabis abuse, uncomplicated; F17.210 Nicotine dependence, cigarettes, uncomplicated; Z56.0 Unemployment, unspecified; Z20.822 Contact with and (suspected) exposure to COVID-19; Z88.2 Allergy status to sulfonamides; Z91.14 Patient's other noncompliance with medication regimen; F41.9 Anxiety disorder, unspecified; F43.10 Post-traumatic stress disorder, unspecified; M06.9 Rheumatoid arthritis, unspecified; M54.50 Low back pain, unspecified

== ENCOUNTER → 2022-02-15 | Outpatient (REF) | payer MEDICAID, OTHER ==
[~2022-02-15] MED LIST changes: +FOLI1TAB11 PO; +MED REC COMMENT; +THIA100TA PO; +VITMTA PO
== END ==
LOC: M LAB REF 18:23
PROVIDERS: ATTEND Family Medicine Addiction Medicine
DX: Z77.29 Contact with and (suspected) exposure to other hazardous substances (principal); X58.XXXA Exposure to other specified factors, initial encounter; Y92.9 Unspecified place or not applicable; Y93.9 Activity, unspecified; Y99.9 Unspecified external cause status

== ENCOUNTER → 2022-09-01 | Outpatient (REF) | payer OTHER ==
[2022-09-01 17:01] LABS: GC DNA AMPLIFICATION NEGATIVE (NEGATIVE)
== END ==
LOC: M LAB REF 12:40
PROVIDERS: ATTEND Family Medicine
DX: F11.20 Opioid dependence, uncomplicated (principal)

== ENCOUNTER → 2022-09-09 | Outpatient (CLI) | payer OTHER ==
[2022-09-09 14:50] LABS: HEMOGLOBIN 14.5 g/dl (12.0-15.5); MEAN CORPUSCULAR HEMOGLOBIN 30.5 pg (27.0-33.0); MEAN CORPUSCULAR HGB CONC 34.5 g/dl (32.0-36.5); MEAN CORPUSCULAR VOLUME 88.2 fl (80.0-96.0); PLATELET COUNT, AUTOMATED 223 10^3/uL (150-450); RED BLOOD COUNT 4.76 10^6/uL (4.00-5.40); WHITE BLOOD COUNT 7.2 10^3/uL (4.0-10.0)
[2022-09-09 15:34] LABS: ALBUMIN 3.5 GM/DL (3.2-5.2); ALT/SGPT 115 U/L (12-78); BILIRUBIN,TOTAL 0.7 MG/DL (0.2-1.0); BLOOD UREA NITROGEN 17 MG/DL (7-18); CALCIUM LEVEL 9.4 MG/DL (8.5-10.1); CARBON DIOXIDE LEVEL 27 MEQ/L (21-32); CHLORIDE LEVEL 105 MEQ/L (98-107); CREATININE FOR GFR 0.53 MG/DL (0.55-1.30); GLOMERULAR FILTRATION RATE > 60.0 (>60); GLUCOSE, FASTING 112 MG/DL (70-100); POTASSIUM SERUM 4.2 MEQ/L (3.5-5.1); SODIUM LEVEL 136 MEQ/L (136-145); TOTAL PROTEIN 7.9 GM/DL (6.4-8.2)
[2022-09-09 16:16] LABS: HEPATITIS B SURFACE ANTIGEN NEGATIVE (NEGATIVE)
[2022-09-09 16:46] LABS: HIV 1&2 SCREEN CENTAUR NEGATIVE (NEGATIVE)
[2022-09-09 16:53] LABS: HEPATITIS C VIRUS ABY INDEX > 11.0 INDEX (<0.8)
[2022-09-09 17:02] LABS: HCG, SERUM QUALITATIVE NEGATIVE (NEGATIVE)
== END ==
LOC: M LAB 13:40
PROVIDERS: ATTEND Family Medicine
DX: F11.20 Opioid dependence, uncomplicated (principal)

== ENCOUNTER → 2022-10-21 | Outpatient (REF) | payer OTHER | LOC: M SFHCWAGY 17:32 | PROVIDERS: ATTEND Obstetrics & Gynecology | DX: Z12.4 Encounter for screening for malignant neoplasm of cervix (principal); R87.610 Atypical squamous cells of undetermined significance on cytologic smear of cervix (ASC-US) | CPT/HCPCS: 87624; G0123 ==

== ENCOUNTER → 2023-02-14 | Outpatient (CLI) | payer OTHER ==
[2023-02-14 13:56] LABS: HEMATOCRIT 46.4 % (36.0-47.0); HEMOGLOBIN 15.5 g/dl (12.0-15.5); MEAN CORPUSCULAR HEMOGLOBIN 28.9 pg (27.0-33.0); MEAN CORPUSCULAR HGB CONC 33.4 g/dl (32.0-36.5); MEAN CORPUSCULAR VOLUME 86.6 fl (80.0-96.0); PLATELET COUNT, AUTOMATED 183 10^3/uL (150-450); RED BLOOD COUNT 5.36 10^6/uL (4.00-5.40); WHITE BLOOD COUNT 7.9 10^3/uL (4.0-10.0)
[2023-02-15 03:09] LABS: ALBUMIN 3.9 G/DL (3.2-5.2); ALKALINE PHOSPHATASE 202 U/L (46-116); ALT/SGPT 92 U/L (7.0-40); AST/SGOT 63 U/L (<34); BILIRUBIN,TOTAL 0.7 MG/DL (0.3-1.2); BLOOD UREA NITROGEN 14 MG/DL (9-23); CALCIUM LEVEL 8.8 MG/DL (8.5-10.1); CARBON DIOXIDE LEVEL 28 MMOL/L (20-31); CHLORIDE LEVEL 102 MMOL/L (98-107); CREATININE FOR GFR 0.57 MG/DL (0.55-1.30); GLOMERULAR FILTRATION RATE > 60.0 (>60); GLUCOSE, FASTING 90 MG/DL (60-100); POTASSIUM SERUM 4.4 MMOL/L (3.5-5.1); SODIUM LEVEL 137 MMOL/L (136-145); TOTAL PROTEIN 7.9 G/DL (5.7-8.2)
[2023-02-15 03:23] LABS: HEPATITIS B SURFACE ANTIGEN NEGATIVE (NEGATIVE)
[2023-02-15 03:36] LABS: HIV 1&2 SCREEN CENTAUR NEGATIVE (NEGATIVE)
[2023-02-15 04:36] LABS: HEPATITIS C VIRUS ABY INDEX > 11.0 INDEX (<0.8)
== END ==
LOC: M WUC 10:24
PROVIDERS: ATTEND Family Medicine
DX: F11.20 Opioid dependence, uncomplicated (principal)

== ENCOUNTER 2023-12-01 14:55 | Emergency (ER) | payer MEDICAID, OTHER, SELFPAY ==
[~2023-12-01] VITALS: Ht 165.1 cm; Wt 88.9 kg
[~2023-12-01 14:55] MED LIST changes: +BENZ0.5T2 PO; -BENZ0.5T23 PO
[2023-12-01 14:56] VITALS: BP 164/79; TEMP 97.6; O2SAT 96
== END 2023-12-01 15:26 | disposition left against medical advice (07) ==
LOC: M ED 14:55
DX: Z53.21 Procedure and treatment not carried out due to patient leaving prior to being seen by health care provider (principal)

== ENCOUNTER 2024-07-31 12:17 | Emergency (ER) | payer MEDICAID ==
[~2024-07-31] VITALS: Ht 165.1 cm; Wt 81.0 kg
[2024-07-31] MEDS ORDERED: BUPR8SUB PO (17:38)
[2024-07-31] MEDS ORDERED: HOME MED LIST COMPLETE! XX SCH (17:40)
[2024-08-01] MEDS: BUPRENORPHINE HCL 8MG SUBINGUAL TABLET SL SCH (08:23)
[2024-08-01 09:36] VITALS: BP 125/74; TEMP 97; O2SAT 96
== END 2024-08-01 09:39 | disposition home or self-care (01) ==
LOC: M ED 12:17
DX: F29 Unspecified psychosis not due to a substance or known physiological condition (principal); F31.9 Bipolar disorder, unspecified; F43.10 Post-traumatic stress disorder, unspecified; F19.10 Other psychoactive substance abuse, uncomplicated; F10.20 Alcohol dependence, uncomplicated; F17.200 Nicotine dependence, unspecified, uncomplicated; Z88.2 Allergy status to sulfonamides

== ENCOUNTER → 2024-10-08 | Outpatient (CLI) | payer MEDICAID, OTHER ==
[~2024-10-08] MED LIST changes: +BUPR8SUB PO
[2024-10-08 15:52] LABS: HEMATOCRIT 39.9 % (36.0-47.0); HEMOGLOBIN 14.1 g/dl (12.0-15.5); MEAN CORPUSCULAR HEMOGLOBIN 31.3 pg (27.0-33.0); MEAN CORPUSCULAR HGB CONC 35.3 g/dl (32.0-36.5); MEAN CORPUSCULAR VOLUME 88.7 fl (80.0-96.0); PLATELET COUNT, AUTOMATED 272 10^3/uL (150-450); WHITE BLOOD COUNT 12.5 10^3/uL (4.0-10.0)
[2024-10-08 16:46] LABS: HIV 1&2 SCREEN NEGATIVE (NEGATIVE)
[2024-10-08 17:14] LABS: HEPATITIS C VIRUS ABY INDEX > 11.00 INDEX (<0.8)
[2024-10-11 22:57] LABS: HCV RNA QUANTITATION <15 NOT DETECTED IU/mL (NOT DETECTED); HCV RNA log10 <1.18 NOT DETECTED Log IU/mL (NOT DETECTED)
== END ==
LOC: M PLALAB 13:11
PROVIDERS: ATTEND Obstetrics & Gynecology
DX: Z34.91 Encounter for supervision of normal pregnancy, unspecified, first trimester (principal)

== ENCOUNTER 2024-11-14 06:13 | Emergency (ER) | payer OTHER ==
[~2024-11-14] VITALS: Ht 165.1 cm; Wt 76.0 kg
[2024-11-14 06:17] VITALS: BP 188/91; TEMP 99.4; O2SAT 98
== END 2024-11-14 09:34 | disposition left against medical advice (07) ==
LOC: M ED 06:13
DX: Z53.21 Procedure and treatment not carried out due to patient leaving prior to being seen by health care provider (principal)

== ENCOUNTER → 2024-11-19 | Outpatient (REF) | payer BC, MEDICAID, OTHER ==
[2024-11-19 12:23] LABS: GC DNA AMPLIFICATION NEGATIVE (NEGATIVE)
== END ==
LOC: M PLALAB 07:56
PROVIDERS: ATTEND Obstetrics & Gynecology
DX: Z34.91 Encounter for supervision of normal pregnancy, unspecified, first trimester (principal); F19.11 Other psychoactive substance abuse, in remission

== ENCOUNTER → 2024-12-19 | Outpatient (REF) | payer OTHER ==
[2024-12-19 19:39] LABS: Trichomonas vaginalis (AMP) NOT DETECTED (NEGATIVE)
[2024-12-19 20:02] LABS: GC DNA AMPLIFICATION NEGATIVE (NEGATIVE)
== END ==
LOC: M SFHCWAGY 17:17
PROVIDERS: ATTEND Nurse Practitioner Family
DX: O09.522 Supervision of elderly multigravida, second trimester (principal)

== ENCOUNTER → 2024-12-20 | Outpatient (CLI) | payer OTHER | LOC: M WHC 13:18 | PROVIDERS: ATTEND Nurse Practitioner Family | DX: Z34.82 Encounter for supervision of other normal pregnancy, second trimester (principal) ==

== ENCOUNTER → 2025-02-04 | Outpatient (CLI) | payer OTHER ==
[~2025-02-04] MED LIST changes: +MULTTAB20 PO; +OLAN1TAB16 PO
== END ==
LOC: M WHC 15:31
PROVIDERS: ATTEND Nurse Practitioner Family
DX: O32.2XX0 Maternal care for transverse and oblique lie, not applicable or unspecified (principal); Z3A.29 29 weeks gestation of pregnancy

== ENCOUNTER → 2025-02-13 | Outpatient (CLI) | payer OTHER | LOC: M PLALAB 14:17 | PROVIDERS: ATTEND Nurse Practitioner Family | DX: O09.522 Supervision of elderly multigravida, second trimester (principal); Z31.430 Encounter of female for testing for genetic disease carrier status for procreative management; Z3A.00 Weeks of gestation of pregnancy not specified ==

== ENCOUNTER → 2025-02-27 | Outpatient (CLI) | payer OTHER ==
[2025-02-27 15:06] LABS: HEMATOCRIT 36.4 % (36.0-47.0); HEMOGLOBIN 12.1 g/dl (12.0-15.5); MEAN CORPUSCULAR HEMOGLOBIN 31.3 pg (27.0-33.0); MEAN CORPUSCULAR HGB CONC 33.2 g/dl (32.0-36.5); MEAN CORPUSCULAR VOLUME 94.3 fl (80.0-96.0); PLATELET COUNT, AUTOMATED 219 10^3/uL (150-450); RED BLOOD COUNT 3.86 10^6/uL (4.00-5.40); WHITE BLOOD COUNT 9.7 10^3/uL (4.0-10.0)
[2025-02-27 15:48] LABS: GLUCOSE CHALLENGE TEST 1 HOUR 85 MG/DL (LESS THAN 140)
[2025-02-27 16:13] LABS: HIV 1&2 SCREEN NEGATIVE (NEGATIVE)
[2025-02-27 16:27] LABS: HEPATITIS C VIRUS ABY INDEX > 11.00 INDEX (<0.8)
== END ==
LOC: M PLALAB 10:34
PROVIDERS: ATTEND Nurse Practitioner Family
DX: O09.522 Supervision of elderly multigravida, second trimester (principal)

== ENCOUNTER → 2025-03-28 | Outpatient (REF) | payer OTHER, MEDICAID | LOC: M SFHCWAGY 15:08 | PROVIDERS: ATTEND Obstetrics & Gynecology | DX: Z36.85 Encounter for antenatal screening for Streptococcus B (principal); Z3A.36 36 weeks gestation of pregnancy ==

== ENCOUNTER 2025-06-01 12:50 | Inpatient (IN) | payer MEDICAID, OTHER, SELFPAY ==
[~2025-06-01] VITALS: Ht 165.1 cm; Wt 64.2 kg
[~2025-06-01 12:50] MED LIST changes: +BUPR8SUB SL
[2025-06-01] MEDS: OLANZapine ORAL DISINTEGRATING TAB 5MG PO ONE (13:30)
[2025-06-01 13:32] LABS: PLATELET COUNT, AUTOMATED 258 10^3/uL (150-450)
[2025-06-01 13:54] LABS: BARBITURATES URINE NEGATIVE (NEGATIVE); BENZODIAZEPINES URINE NEGATIVE (NEGATIVE); CANNABINOIDS URINE NEGATIVE (NEGATIVE); COCAINE METABOLITE URINE NEGATIVE (NEGATIVE); METHADONE URINE NEGATIVE (NEGATIVE); OPIATES URINE NEGATIVE (NEGATIVE); PHENCYCLIDINE URINE NEGATIVE (NEGATIVE)
[2025-06-01 13:55] LABS: ETHYL ALCOHOL (ETHANOL) 0.004 % (0.000-0.010)
[2025-06-01 13:55] LABS: AMPHETAMINES LEVEL URINE POSITIVE (NEGATIVE)
[2025-06-01 13:57] LABS: ALT/SGPT 29 U/L (7.0-40); AST/SGOT 39 U/L (<34); CALCIUM LEVEL 10.2 MG/DL (8.5-10.1); CARBON DIOXIDE LEVEL 24 MMOL/L (20-31); CHLORIDE LEVEL 104 MMOL/L (98-107); CREATININE FOR GFR 0.91 MG/DL (0.55-1.30); GLOMERULAR FILTRATION RATE 84.4 (>60); POTASSIUM SERUM 4.6 MMOL/L (3.5-5.1); SALICYLATE LEVEL < 3.0 MG/DL (<30); SODIUM LEVEL 142 MMOL/L (136-145)
[2025-06-01 13:58] LABS: HCG, SERUM QUALITATIVE NEGATIVE (NEGATIVE)
[2025-06-01] MEDS: OLANZapine INTRAMUSCULAR 10MG VIAL IM ONE (16:13)
[2025-06-02] MEDS ORDERED: BUPR8SUB SL (10:23)
[2025-06-02] MEDS ORDERED: HOME MED LIST COMPLETE! XX SCH (10:25)
[2025-06-02] MEDS ORDERED: MAALOX 30 ML SUSP *UDC PO PRN (21:15)
[2025-06-02] MEDS ORDERED: ACETAMINOPHEN 325 MG TAB PO PRN (21:15)
[2025-06-02] MEDS ORDERED: IBUPROFEN 400 MG TAB PO PRN (21:15)
[2025-06-02] MEDS ORDERED: traZODone 50 MG TAB PO PRN (21:15)
[2025-06-02] MEDS ORDERED: MOM 30 ML SUSPENSION UDC PO PRN (21:15)
[2025-06-03 07:04] VITALS: BP 111/61; TEMP 97.8; O2SAT 99
[2025-06-03] MEDS ORDERED: OLANZapine ORAL DISINTEGRATING TAB 5MG PO PRN (17:30)
[2025-06-03] MEDS: OLANZapine 5 MG TAB PO SCH (20:21)
[2025-06-04] MEDS: BACLOFEN 10 MG TAB PO SCH (09:00)
[2025-06-04] MEDS: ONDANSETRON 4MG TAB PO ONE (10:19)
[2025-06-04] MEDS: ONDANSETRON 4MG ORAL DISINTEGRATING TAB PO ONE (10:20)
[2025-06-04] MEDS ORDERED: ONDANSETRON 4MG ORAL DISINTEGRATING TAB PO PRN (14:45)
[2025-06-06] MEDS ORDERED: OLAN1TAB16 PO (09:12)
== END 2025-06-06 11:44 | disposition home or self-care (01) | DRG 753 ==
LOC: M ED 12:50 → CANBEDREQ 06-02 17:04 → M ED INP 06-02 21:12 → M PSY 06-02 22:05
PROVIDERS: ADMIT Student in an Organized Health Care Education/Training Program; ATTEND Student in an Organized Health Care Education/Training Program
DX: F31.2 Bipolar disorder, current episode manic severe with psychotic features (principal); F10.90 Alcohol use, unspecified, uncomplicated; F15.920 Other stimulant use, unspecified with intoxication, uncomplicated; F12.90 Cannabis use, unspecified, uncomplicated; F17.210 Nicotine dependence, cigarettes, uncomplicated; E80.6 Other disorders of bilirubin metabolism; E83.52 Hypercalcemia; Z87.891 Personal history of nicotine dependence; Z88.2 Allergy status to sulfonamides; Z56.0 Unemployment, unspecified